=== PATIENT | male | born 1985 | race Hispanic/Latino ===

== ENCOUNTER 2018-08-19 17:47 | Emergency (ER) | payer MEDICARE ==
[~2018-08-19 17:47] MED LIST: AMLO10TA7 PO; ATOR20TA65 PO; CALC-1153 PO; CALC667C10 PO; DOCU100T PO; ESOM40CA PO; FOLI1TAB85 PO; GLIP2.5T PO; LEVO300T8 PO; LIDO1KIT30 TP; LOSA100T58 PO; METO50TA18 PO; ONDA4TAB9 PO; RANI150C4 PO; SEVE800T7 PO
[2018-08-19 18:08] LABS: BASOPHILS % (AUTO) 1.1 % (0.0-5.0); EOSINOPHILS % (AUTO) 4.7 % (0.0-8.0); HEMATOCRIT 31.8 % (42-54); LYMPHOCYTES % (AUTO) 16.8 % (21.0-51.0); MEAN CORPUSCULAR HEMOGLOBIN 31.5 pg (27.0-33.0); MEAN CORPUSCULAR HGB CONC 34.2 g/dL (32.0-36.0); MEAN CORPUSCULAR VOLUME 91.9 fL (79-99); MONOCYTES % (AUTO) 12.1 % (3.0-13.0); NEUTROPHILS % (AUTO) 65.3 % (40.0-77.0); PLATELET COUNT (AUTO) 126 K/uL (130-400); RED BLOOD CELL COUNT(AUTO) 3.46 MIL/uL (4.50-6.20); RED CELL DISTRIBUTION WIDTH 16.3 % (11.0-15.5); WHITE BLOOD COUNT (AUTO) 5.3 K/uL (4.8-10.8)
[2018-08-19] MEDS ORDERED: NITROGLYCERIN 1GM/1 INCH PACKET TD ONE (18:20)
[2018-08-19] MEDS ORDERED: ASPIRIN 325 MG TABLET ONE (18:20)
[2018-08-19 18:25] LABS: ALBUMIN 4.2 g/dL (3.5-5.0); BILIRUBIN,TOTAL 0.8 mg/dL (0.2-1.0); POTASSIUM 3.9 mmol/L (3.5-5.1); TOTAL PROTEIN, SERUM 8.7 g/dL (6.0-8.3)
[2018-08-19 18:30] LABS: CREATININE 8.7 mg/dL (0.5-1.5)
== END 2018-08-19 21:47 | disposition home or self-care (01) ==
LOC: EDH 17:47
DX: M62.830 Muscle spasm of back (principal); I51.7 Cardiomegaly; I12.0 Hypertensive chronic kidney disease with stage 5 chronic kidney disease or end stage renal disease; E11.22 Type 2 diabetes mellitus with diabetic chronic kidney disease; N18.6 End stage renal disease; E89.0 Postprocedural hypothyroidism; Z99.2 Dependence on renal dialysis; Z90.49 Acquired absence of other specified parts of digestive tract; Z87.891 Personal history of nicotine dependence
CPT/HCPCS: 36415; 71046; 80053; 82550; 84484; 85025; 93005

== ENCOUNTER 2022-05-29 14:40 | Emergency (ER) | payer MEDICARE ==
[~2022-05-29] VITALS: Ht 188 cm; Wt 149.7 kg
[2022-05-29 14:40] VITALS: BP 155/85
[~2022-05-29 14:40] MED LIST changes: +AMLO-258 PO; -AMLO10TA7 PO; +ONDA-104 PO; -ONDA4TAB9 PO
[2022-05-29] MEDS ORDERED: OCTYL 2-CYANOACRYLATE 1 EACH TP ONE (17:18)
== END 2022-05-29 17:59 | disposition home or self-care (01) ==
LOC: EDH 14:40
DX: T82.838A Hemorrhage due to vascular prosthetic devices, implants and grafts, initial encounter (principal); I12.0 Hypertensive chronic kidney disease with stage 5 chronic kidney disease or end stage renal disease; E11.22 Type 2 diabetes mellitus with diabetic chronic kidney disease; N18.6 End stage renal disease; E78.00 Pure hypercholesterolemia, unspecified; Z79.84 Long term (current) use of oral hypoglycemic drugs; Z79.899 Other long term (current) drug therapy; Z99.2 Dependence on renal dialysis; Y83.8 Other surgical procedures as the cause of abnormal reaction of the patient, or of later complication, without mention of misadventure at the time of the procedure; Y92.89 Other specified places as the place of occurrence of the external cause
CPT/HCPCS: 99281

== ENCOUNTER 2022-06-22 05:57 | Day surgery (SDC) | payer MEDICARE ==
[2022-06-19 11:13] VITALS: BP 157/91
[2022-06-19 11:15] LABS: BASOPHILS % (AUTO) 0.5 % (0.0-5.0); EOSINOPHILS % (AUTO) 2.4 % (0.0-8.0); HEMATOCRIT 33.5 % (42-54); LYMPHOCYTES % (AUTO) 11.4 % (21.0-51.0); MEAN CORPUSCULAR HEMOGLOBIN 30.7 pg (27.0-33.0); MEAN CORPUSCULAR HGB CONC 32.5 g/dL (32.0-36.0); MEAN CORPUSCULAR VOLUME 94.4 fL (79-99); MONOCYTES % (AUTO) 10.7 % (3.0-13.0); NEUTROPHILS % (AUTO) 74.8 % (40.0-77.0); PLATELET COUNT (AUTO) 113 K/uL (130-400); RED BLOOD CELL COUNT(AUTO) 3.55 MIL/uL (4.50-6.20); RED CELL DISTRIBUTION WIDTH 14.3 % (11.0-15.5); WHITE BLOOD COUNT (AUTO) 8.5 K/uL (4.8-10.8)
[2022-06-19 11:29] LABS: POTASSIUM 3.6 mmol/L (3.5-5.1)
[2022-06-19 11:36] LABS: CREATININE 8.6 mg/dL (0.5-1.5)
[2022-06-19 11:39] LABS: INR 1.29 (0.85-1.15); PROTHROMBIN TIME 13.9 SEC (9.6-11.6)
[2022-06-19 11:40] LABS: PARTIAL THROMBOPLASTIN TIME 31.5 SEC (26.3-35.5)
[~2022-06-22] VITALS: Ht 188 cm; Wt 146.1 kg
[2022-06-22] VITALS (16 sets, daily range): BP systolic 110–135; BP diastolic 56–85
[~2022-06-22 05:57] MED LIST changes: +AMIO200T68 PO; +AMOX1TAB16 PO; +APIX2.5T PO; -ATOR20TA65 PO; -CALC-1153 PO; -CALC667C10 PO; -DOCU100T PO; -ESOM40CA PO; -GLIP2.5T PO; -LIDO1KIT30 TP; -LOSA100T58 PO; +LOSA50TA64 PO; +METO100T14 PO; -METO50TA18 PO; +MONT-39 PO; +OMEP40CA21 PO; -RANI150C4 PO; +SUCR500T PO
[2022-06-22] MEDS ORDERED: 0.9%NACL 1000ML 1,000 ML IV ONE (06:29)
[2022-06-22] MEDS ORDERED: LIDOCAINE HCL 2% VISCOUS 15 ML UDCUP ONE (06:56)
[2022-06-22] MEDS ORDERED: MIDAZOLAM HCL 1 MG/ML 2ML VIAL ONE ×2 (06:57→10:35)
[2022-06-22] MEDS ORDERED: FENTANYL CITRATE PF 50 MCG/1 ML 2ML VIAL ONE (06:57)
[2022-06-22] MEDS ORDERED: FLUMAZENIL 0.1MG/1ML 5ML VIAL IV ONE (06:58)
[2022-06-22] MEDS ORDERED: NALOXONE HCL 0.4 MG/1 ML ML ONE (06:58)
[2022-06-22] MEDS ORDERED: PROPOFOL 10 MG/ML 20ML VIAL IV ONE (10:35)
== END 2022-06-22 11:20 | disposition home or self-care (01) ==
LOC: DAH 05:57
PROVIDERS: ATTEND Internal Medicine Cardiovascular Disease
DX: I48.19 Other persistent atrial fibrillation (principal); I42.0 Dilated cardiomyopathy; I48.3 Typical atrial flutter; I45.10 Unspecified right bundle-branch block; E11.22 Type 2 diabetes mellitus with diabetic chronic kidney disease; I12.0 Hypertensive chronic kidney disease with stage 5 chronic kidney disease or end stage renal disease; N18.6 End stage renal disease; E66.01 Morbid (severe) obesity due to excess calories; E78.5 Hyperlipidemia, unspecified; Z90.49 Acquired absence of other specified parts of digestive tract; Z98.890 Other specified postprocedural states; Z83.3 Family history of diabetes mellitus; E89.0 Postprocedural hypothyroidism; Z79.890 Hormone replacement therapy; Z79.01 Long term (current) use of anticoagulants; Z99.2 Dependence on renal dialysis; Z79.899 Other long term (current) drug therapy; Z68.41 Body mass index [BMI] 40.0-44.9, adult
CPT/HCPCS: 80048; 85025; 85610; 85730; 36415; 92960; 93325; 93312; 93005; A4223 ×3; J3010; J7030; J2250; J2704; A4615; A4215; A4657; A7002; A4222; A4221; A4663; A4216; A4606; 99156; 99157; J2310; J3490

== ENCOUNTER → 2022-09-16 | Outpatient (CLI) | payer MEDICARE | END | disposition home or self-care (01) | LOC: SHCH 10:08 | PROVIDERS: ATTEND Internal Medicine Cardiovascular Disease | DX: I51.7 Cardiomegaly (principal); I42.0 Dilated cardiomyopathy; I10 Essential (primary) hypertension; E11.9 Type 2 diabetes mellitus without complications | CPT/HCPCS: 93306 ==

== ENCOUNTER → 2022-12-02 | Outpatient (CLI) | payer MEDICARE | END | disposition home or self-care (01) | LOC: SHCH 07:37 | PROVIDERS: ATTEND Internal Medicine Cardiovascular Disease | DX: I11.9 Hypertensive heart disease without heart failure (principal); E11.9 Type 2 diabetes mellitus without complications; E78.5 Hyperlipidemia, unspecified | CPT/HCPCS: 93306 ==

== ENCOUNTER 2023-01-05 15:19 | Emergency (ER) | payer MEDICARE ==
[~2023-01-05] VITALS: Ht 188 cm; Wt 158.8 kg
[~2023-01-05 15:19] MED LIST changes: +AMLO-257 PO; -AMLO-258 PO; -AMOX1TAB16 PO; +LEVO100C4 PO; +LEVO200C2 PO; -LEVO300T8 PO; +LOSA100T59 PO; -LOSA50TA64 PO; -METO100T14 PO; -SEVE800T7 PO; -SUCR500T PO
[2023-01-05 16:03] LABS: BASOPHILS # (AUTO) 0.04 K/uL (0.00-0.20); BASOPHILS % (AUTO) 0.7 % (0.0-5.0); EOSINOPHILS # (AUTO) 0.15 K/uL (0.00-0.70); EOSINOPHILS % (AUTO) 2.5 % (0.0-8.0); HEMATOCRIT 28.6 % (42-54); IMMATURE GRANULOCYTE ABSOLUTE 0.02 K/uL (0-1); LYMPHOCYTES # (AUTO) 0.8 K/uL (1.0-4.8); LYMPHOCYTES % (AUTO) 13.3 % (21.0-51.0); MEAN CORPUSCULAR HEMOGLOBIN 32.6 pg (27.0-33.0); MEAN CORPUSCULAR VOLUME 90.5 fL (79-99); MONOCYTES # (AUTO) 0.5 K/uL (0.1-1.0); MONOCYTES % (AUTO) 7.9 % (3.0-13.0); NEUTROPHILS # (AUTO) 4.6 K/uL (1.8-7.7); NEUTROPHILS % (AUTO) 75.3 % (40.0-77.0); PLATELET COUNT (AUTO) 81 K/uL (130-400); RED BLOOD CELL COUNT(AUTO) 3.16 MIL/uL (4.50-6.20); RED CELL DISTRIBUTION WIDTH 12.2 % (11.0-15.5); WHITE BLOOD COUNT (AUTO) 6.1 K/uL (4.8-10.8)
[2023-01-05 16:24] LABS: ALBUMIN 3.7 g/dL (3.5-5.0); BILIRUBIN,TOTAL 0.7 mg/dL (0.2-1.0); POTASSIUM 3.8 mmol/L (3.5-5.1); TOTAL PROTEIN, SERUM 7.8 g/dL (6.0-8.3)
[2023-01-05 16:28] LABS: CREATININE 10.5 mg/dL (0.5-1.5)
[2023-01-05 18:21] VITALS: BP 151/92; PULSE 61; RESP 16; O2SAT 99
== END 2023-01-05 18:55 | disposition home or self-care (01) ==
LOC: EDH 15:19
DX: R06.02 Shortness of breath (principal); I12.0 Hypertensive chronic kidney disease with stage 5 chronic kidney disease or end stage renal disease; E11.22 Type 2 diabetes mellitus with diabetic chronic kidney disease; N18.6 End stage renal disease; Z99.2 Dependence on renal dialysis; E78.00 Pure hypercholesterolemia, unspecified; Z79.01 Long term (current) use of anticoagulants; Z79.890 Hormone replacement therapy; Z79.899 Other long term (current) drug therapy; Z95.810 Presence of automatic (implantable) cardiac defibrillator
CPT/HCPCS: 36415; 71045; 80053; 84484; 85025; 93005

== ENCOUNTER → 2023-05-12 | Outpatient (CLI) | payer OTHER, MEDICARE | END | disposition home or self-care (01) | LOC: SHCH 10:42 | PROVIDERS: ATTEND Internal Medicine Cardiovascular Disease | DX: I42.0 Dilated cardiomyopathy (principal); I35.8 Other nonrheumatic aortic valve disorders; I51.7 Cardiomegaly; Z95.0 Presence of cardiac pacemaker | CPT/HCPCS: 93306 ==

== ENCOUNTER 2023-10-01 06:58 | Observation (INO) | payer OTHER, MEDICARE ==
[2023-09-29 14:40] LABS: HEMATOCRIT 33.3 % (42-54); MEAN CORPUSCULAR HEMOGLOBIN 32.4 pg (27.0-33.0); MEAN CORPUSCULAR HGB CONC 33.9 g/dL (32.0-36.0); MEAN CORPUSCULAR VOLUME 95.4 fL (79-99); RED BLOOD CELL COUNT(AUTO) 3.49 MIL/uL (4.50-6.20); RED CELL DISTRIBUTION WIDTH 13.5 % (11.0-15.5); WHITE BLOOD COUNT (AUTO) 6.8 K/uL (4.8-10.8)
[2023-09-29 14:42] VITALS: BP 143/85; PULSE 89; RESP 18
[2023-09-29 15:03] LABS: POTASSIUM 4.4 mmol/L (3.5-5.1)
[2023-09-29 15:06] LABS: CREATININE 12.1 mg/dL (0.5-1.3)
[2023-09-29 15:41] LABS: INR 1.15 (0.85-1.15); PARTIAL THROMBOPLASTIN TIME 27.9 SEC (26.3-35.5); PROTHROMBIN TIME 12.1 SEC (9.6-11.6)
[2023-10-01] VITALS (29 sets, daily range): BP systolic 132–159; BP diastolic 64–98; PULSE 57–100; RESP 10–20; O2SAT 95
[~2023-10-01] VITALS: Ht 188 cm; Wt 163.3 kg
[~2023-10-01 06:58] MED LIST changes: +CARV25TA PO; -LEVO100C4 PO; -LEVO200C2 PO; +LEVO300T8 PO; -ONDA-104 PO
[2023-10-01] MEDS: 0.9% NACL 500ML IV.SOLN 500 ML IV ONE (07:34)
[2023-10-01] MEDS: FAMOTIDINE 20MG VIAL IV ONE (07:46)
[2023-10-01] MEDS: ACETAMINOPHEN 1,000 MG/100 ML VIAL IV ONE (07:46)
[2023-10-01] MEDS ORDERED: LIDOCAINE PF 100MG/5ML (2%) SYRINGE 5ML ONE (07:55)
[2023-10-01] MEDS ORDERED: FENTANYL CITRATE PF 50 MCG/1 ML 2ML VIAL ONE (07:55)
[2023-10-01] MEDS ORDERED: ROCURONIUM BROMIDE 10MG/1ML 5ML VL ONE ×2 (07:55→08:59)
[2023-10-01] MEDS ORDERED: PROPOFOL 10 MG/ML 20ML VIAL IV ONE (07:55)
[2023-10-01 07:57] LABS: POTASSIUM 3.9 mmol/L (3.5-5.1)
[2023-10-01 08:06] LABS: CREATININE 11.4 mg/dL (0.5-1.3)
[2023-10-01] MEDS ORDERED: KETAMINE 50MG/ML SYRINGE 50 MG/ML DISP.SYRIN ONE (08:08)
[2023-10-01] MEDS ORDERED: DEXAMETHASONE SOD PHOSPHATE 10MG/ML 1ML VIAL ONE (08:29)
[2023-10-01] MEDS ORDERED: ONDANSETRON 4MG INJ ONE (08:29)
[2023-10-01] MEDS: CEFAZOLIN SODIUM 1 GM VIAL ONE (08:30)
[2023-10-01] MEDS: SUGAMMADEX SODIUM 200 MG/2 ML VIAL IV ONE (08:43)
[2023-10-01] MEDS: CEFAZOLIN SODIUM 2 GM VIAL ONE (08:59)
[2023-10-01] MEDS ORDERED: EPHEDRINE SULFATE 50 MG/ML AMPULE ONE (09:08)
[2023-10-01] MEDS ORDERED: HEPARIN 10,000 UNIT/10ML (1,000 UNIT/ML) VIAL ONE (09:18)
[2023-10-01] MEDS ORDERED: ALPR2TAB7 PO (09:50)
[2023-10-01] MEDS ORDERED: PROTAMINE SULFATE 10 MG/ML 5 ML VIAL ONE (10:36)
[2023-10-01 10:45] LABS: BASOPHILS # (AUTO) 0.03 K/uL (0.00-0.20); BASOPHILS % (AUTO) 0.4 % (0.0-5.0); EOSINOPHILS # (AUTO) 0.14 K/uL (0.00-0.70); EOSINOPHILS % (AUTO) 2.1 % (0.0-8.0); IMMATURE GRANULOCYTE ABSOLUTE 0.02 K/uL (0-1); LYMPHOCYTES # (AUTO) 0.8 K/uL (1.0-4.8); LYMPHOCYTES % (AUTO) 11.3 % (21.0-51.0); MEAN CORPUSCULAR HEMOGLOBIN 32.5 pg (27.0-33.0); MEAN CORPUSCULAR HGB CONC 33.7 g/dL (32.0-36.0); MEAN CORPUSCULAR VOLUME 96.5 fL (79-99); MONOCYTES # (AUTO) 0.2 K/uL (0.1-1.0); MONOCYTES % (AUTO) 2.5 % (3.0-13.0); NEUTROPHILS # (AUTO) 5.6 K/uL (1.8-7.7); NEUTROPHILS % (AUTO) 83.4 % (40.0-77.0); PLATELET COUNT (AUTO) 79 K/uL (130-400); RED BLOOD CELL COUNT(AUTO) 3.11 MIL/uL (4.50-6.20); RED CELL DISTRIBUTION WIDTH 13.5 % (11.0-15.5); WHITE BLOOD COUNT (AUTO) 6.7 K/uL (4.8-10.8)
[2023-10-01] MEDS ORDERED: ACETAMINOPHEN 325 MG TAB PO PRN (11:30)
[2023-10-01] MEDS ORDERED: TRAMADOL HCL 50 MG TABLET PO PRN (11:30)
[2023-10-01] MEDS: ONDANSETRON 4MG INJ ONE ×2 (11:49→12:15)
[2023-10-01] MEDS: METOCLOPRAMIDE 10 MG/2 ML VIAL ONE (12:15)
[2023-10-01] MEDS: SCOPOLAMINE HYDROBROMIDE 1 EACH ADH..PATCH TD ONE (12:15)
[2023-10-01] MEDS: FENTANYL CITRATE PF 50 MCG/1 ML 2ML VIAL ONE (12:34)
[2023-10-01] MEDS: CEFAZOLIN SODIUM 2 GM VIAL IVPB SCH (17:35)
[2023-10-01] MEDS: TRAMADOL HCL 50 MG TABLET PO PRN (18:30)
[2023-10-01] MEDS ORDERED: ALPRAZOLAM 1 MG TAB PO PRN (21:30)
[2023-10-01] MEDS: ONDANSETRON 4MG INJ IVP PRN (22:34)
[2023-10-02] VITALS (18 sets, daily range): BP systolic 123–149; BP diastolic 67–91; PULSE 55–70; RESP 16–20; TEMP 97.7–98.2; O2SAT 96
[2023-10-02] MEDS ORDERED: HYDROMORPHONE 0.5 MG SYG (0.5MG/0.5ML) IVP PRN (01:00)
[2023-10-02 04:43] LABS: HEMATOCRIT 31.4 % (42-54); MEAN CORPUSCULAR HEMOGLOBIN 31.8 pg (27.0-33.0); MEAN CORPUSCULAR HGB CONC 33.1 g/dL (32.0-36.0); RED BLOOD CELL COUNT(AUTO) 3.27 MIL/uL (4.50-6.20); RED CELL DISTRIBUTION WIDTH 13.4 % (11.0-15.5); WHITE BLOOD COUNT (AUTO) 11.7 K/uL (4.8-10.8)
[2023-10-02 04:59] LABS: INR 1.11 (0.85-1.15); PROTHROMBIN TIME 11.9 SEC (9.6-11.6)
[2023-10-02 05:00] LABS: ALBUMIN 3.5 g/dL (3.5-5.0); BILIRUBIN,TOTAL 0.5 mg/dL (0.2-1.0); PHOSPHORUS 4.6 mg/dL (2.5-4.9); POTASSIUM 5.2 mmol/L (3.5-5.1); TOTAL PROTEIN, SERUM 7.8 g/dL (6.0-8.3)
[2023-10-02 05:01] LABS: PARTIAL THROMBOPLASTIN TIME 28.8 SEC (26.3-35.5)
[2023-10-02 05:26] LABS: CREATININE 13.2 mg/dL (0.5-1.3)
[2023-10-02] MEDS: LEVOTHYROXINE 150 MCG TABLET PO SCH (06:00)
[2023-10-02] MEDS: Vitamin B Complex/Vit C/Folic Acid PO SCH (08:45)
[2023-10-02] MEDS: AMIODARONE 200 MG TABLET PO SCH (09:00)
[2023-10-02] MEDS: CARVEDILOL 25 MG TABLET PO SCH (09:00)
[2023-10-02] MEDS: LOSARTAN 100 MG TABLET PO SCH (09:00)
[2023-10-02] MEDS: 0.9%NACL 1000ML 1,000 ML IV SCH (09:46)
[2023-10-02] MEDS: CEFAZOLIN SODIUM 2 GM VIAL IVPB SCH (12:41)
[2023-10-02 20:51] LABS: HEPATITIS B CORE AB TOTAL Non-Reactive (Nonreactive); HEPATITIS B SURFACE ANTIBODY Positive (Reactive); HEPATITIS B SURFACE ANTIGEN Non-Reactive (Nonreactive)
[2023-10-02] MEDS ORDERED: MONTELUKAST SODIUM 10 MG TAB PO SCH (21:00)
[2023-10-02] MEDS ORDERED: AMLODIPINE 5 MG TAB PO SCH (21:00)
== END 2023-10-02 16:45 | disposition home or self-care (01) ==
LOC: DAH 06:58 → DAHIP 06:59 → DAH 06:59 → 4AH 13:15
PROVIDERS: ADMIT Internal Medicine; ATTEND Internal Medicine
DX: I77.0 Arteriovenous fistula, acquired (principal); I48.91 Unspecified atrial fibrillation; D69.6 Thrombocytopenia, unspecified; E11.22 Type 2 diabetes mellitus with diabetic chronic kidney disease; I12.0 Hypertensive chronic kidney disease with stage 5 chronic kidney disease or end stage renal disease; N18.6 End stage renal disease; K59.00 Constipation, unspecified; I25.10 Atherosclerotic heart disease of native coronary artery without angina pectoris; G47.30 Sleep apnea, unspecified; E11.51 Type 2 diabetes mellitus with diabetic peripheral angiopathy without gangrene; E78.00 Pure hypercholesterolemia, unspecified; E87.70 Fluid overload, unspecified; E89.0 Postprocedural hypothyroidism; I51.7 Cardiomegaly; Z95.0 Presence of cardiac pacemaker; Z87.891 Personal history of nicotine dependence; Z90.49 Acquired absence of other specified parts of digestive tract; Z79.899 Other long term (current) drug therapy; Z98.890 Other specified postprocedural states
CPT/HCPCS: 80048 ×2; 85027 ×2; 85610 ×2; 85730 ×2; 86850; 86900; 86901; 36415 ×3; 71045; 93005; 36830; 96365; 96375; 85025; 82948; 86706; 87340; 86704; 88311; 88304; 84132; 96366; 84100; 80053; 90935; G0378 ×27; A4600; A6260; A4663; A6207; J7030; A4452; J7040; J3490 ×5; J3010 ×2; J0690 ×5; J1100; J2001; J2720; J1644 ×2; J2704; J2405 ×4; J2765; C9250; G0168; A4649 ×4; C1713 ×3; A4930; C1768; A4215; A4223; A4222; A4221; G0257

== ENCOUNTER → 2024-05-08 | Outpatient (CLI) | payer OTHER, MEDICARE ==
[~2024-05-08] MED LIST changes: +ALPR2TAB7 PO; -APIX2.5T PO
--- NOTE | 2024-05-12 08:43 | HMCSR ---
APPROVED REPORT EXAM: Two-dimensional and M-mode echocardiogram with Doppler and color Doppler. INDICATION ICD: I25.5 Ischemic cardiomyopathy 2D Dimensions RVDd5.2 cmLVEF(%)23.8 (>50%)LVED Vol(simp.)327.0 mL IVSd1.3 (0.7-1.1cm)FS(%)11 %LVES Vol(simp.)246.0 mL LVDd7.8 (3.8-5.6cm)Ao Root(2D)3.4 (2.0-3.7cm)LVEF(%, simp.)25 % PWd1.3 (0.7-1.1cm)LVOT diam2.5 (1.8-2.4cm)LA ESV INDEX (BP)64.98 mL/m2 LVDs6.9 (2.5-4.0cm)IVC diam2.2 cm Aortic Valve AoV Vmax1.6 m/Sal Peak GR10.6 mmHgLVOT Vmax0.9 m/s AoV VTI0.4 mAo Mean GR6.4 mmHgLVOT VTI0.20 m JOSEFA (VMAX)2.7 cm2AVA (VTI) 2.7 cm2 Mitral Valve MV E Vmax66.0 cm/sDECEL Dpla524 ms MV A Vmax77.9 cm/sP 1/2 T59 ms E/A ratio0.8MVA (PHT)3.7 cm2 MR Max PG93 mmHg TDI E/E' Bmrdpk51.2E/E' Rggkpzr60.3 Pulmonary Valve PV Vmax1.0 m/sPV VTI0.26 mPV Mean GR2 mmHg PV Peak GR4.1 mmHg Tricuspid Valve TR Vmax3.0 m/sRAP (EST) 8 idUaQUMK80.5 mmHg TR Peak GR35.5 mmHg Left Ventricle The left ventricle is severely dilated. Severe global hypokinesis. There is mild concentric left vent ricular hypertrophy. LVEF is 25%. No left ventricle thrombus noted on this study. Grade 1 diastolic d ysfunction Right Ventricle The right ventricle is severely dilated. The right ventricular systolic function is normal. Atria The left atrium is severely dilated. The right atrium is severely dilated. Aortic Valve Aortic valve is trileaflet. Aortic valve leaflets are sclerotic but open well. Trace aortic regurgita tion. There is no aortic valvular stenosis. Mitral Valve Mitral valve leaflets are mildly sclerotic but open well. Mitral regurgitation is moderate. There is no mitral valve stenosis. Tricuspid Valve The tricuspid valve leaflets appear normal. There is moderate tricuspid regurgitation. Right ventricu lar systolic pressure is estimated at 40-50 mmHg. Pulmonic Valve The pulmonic valve leaflets are thin and pliable; valve motion is normal. There is trace to mild valv ular regurgitation. Great Vessels The aortic root is normal in size. IVC is dilated and collapses >50% with inspiration. Pericardium No pericardial effusion. Conclusion The left ventricle is severely dilated. There is mild concentric left ventricular hypertrophy. LVEF is 25%. Grade 1 diastolic dysfunction Severe global hypokinesis. The right ventricle is severely dilated. The left atrium is severely dilated. Aortic valve is trileaflet. Aortic valve leaflets are sclerotic but open well. Trace aortic regurgitation. Mitral valve leaflets are mildly sclerotic but open well. Mitral regurgitation is moderate. There is moderate tricuspid regurgitation. Right ventricular systolic pressure is estimated at 40-50 mmHg. There is trace to mild valvular regurgitation. The aortic root is normal in size. IVC is dilated and collapses >50% with inspiration. No pericardial effusion.
== END | disposition home or self-care (01) ==
LOC: SHCH 12:31
PROVIDERS: ATTEND Internal Medicine Cardiovascular Disease
DX: I25.5 Ischemic cardiomyopathy (principal)
CPT/HCPCS: 93306